=== PATIENT | male | born 1975 | race Hispanic/Latino ===

== ENCOUNTER 2023-06-26 20:36 | Emergency (ER) | payer SELFPAY ==
[2023-06-26] MEDS ORDERED: cefTRIAXone (ROCEPHIN) 500 MG VIAL ONE (22:15)
[2023-06-26] MEDS ORDERED: Bacitracin 1 PK ONE (22:15)
[2023-06-26] MEDS ORDERED: Lidocaine 1% PF 5 ML VIAL ONE (22:16)
== END 2023-06-26 22:33 | disposition home or self-care (01) ==
LOC: ERS 20:36
DX: L03.311 Cellulitis of abdominal wall (principal)
CPT/HCPCS: 96372; 99283; J0696